=== PATIENT | female | born 1950 | race Two or more races ===

== ENCOUNTER 2020-04-01 08:17 | Day surgery (SDC) | payer MEDICAID ==
[~2020-04-01] VITALS: Ht 152.4 cm; Wt 67.0 kg
[2020-04-01] VITALS (10 sets, daily range): BP systolic 102–144; BP diastolic 57–71
[~2020-04-01 08:17] MED LIST: LR 1000ml 1,000 ML IVLG SCH
[2020-04-01] MEDS ORDERED: ASPIRIN81 MG ORAL (09:19)
[2020-04-01] MEDS ORDERED: TRIAMTERENE-HC1 EAC7 ORAL (09:19)
[2020-04-01] MEDS ORDERED: ENALAPRIL MALE2.5 MG ORAL (09:19)
[2020-04-01] MEDS ORDERED: NORVASC10 MG ORAL (09:19)
[2020-04-01] MEDS ORDERED: Lidocaine 1% MPF 10mg/ml 5ml ONE (10:30)
[2020-04-01] MEDS ORDERED: LR 1000ml ONE (10:30)
--- NOTE | 2020-04-01 10:34 | Pre-Procedure Note/Attestation ---
Pre-Procedure Note/Attestation Complete Prior to Procedure Planned Procedure: not applicable Procedure Narrative: esophagogastroduodenoscopy and colonoscopy Indications for Procedure Pre-Operative Diagnosis: screening colon GERD Attestation I attest that I discussed the nature of the procedure; its benefits; risks and complications; and alternatives (and the risks and benefits of such alternatives ), prior to the procedure, with the patient (or the patient's legal representative personal service). I attest that, if there was a reasonable possibility of needing a blood transfusion, the patient (or the patient's legal representative personal service) was given the [facility] standardized written summary, pursuant to the [place] Blood Safety Act ([place] Health and Safety Code # 1645, as amended). I attest that I re-evaluated the patient just prior to the surgery and that there has been no change in the patient's H&P, except as documented below: William Gant MD Apr 01, 2020 10:34
--- NOTE | 2020-04-01 10:36 | Short Stay Surgery H&P ---
History of Present Illness History of Present Illness Chief Complaint gerd, screening colon HPI Jayden Rae is a 70 year old female who was admitted on for Gerd, Constipation Due To Chemo Patient History Allergies: Coded Allergies: No Known Allergies (Unverified , 03/26/20) PAST MEDICAL HISTORY: (1) HTN (hypertension) (2) GERD (gastroesophageal reflux disease) Medication History Scheduled Amlodipine Besylate (Norvasc), 10 MG ORAL DAILY, (Reported) Aspirin* (Aspirin*), 81 MG ORAL DAILY, (Reported) Enalapril Maleate* (Enalapril Maleate*), Unknown Dose ORAL DAILY, (Reported) Triamterene/Hydrochlorothiazid (Triamterene-Hctz 37.5-25 Mg Cp), 1 CAP ORAL DAILY, (Reported) Review of Systems Cardiovascular: Reports: no symptoms Respiratory: Reports: no symptoms Skeletal: Reports: no symptoms Gastrointestinal: Reports: gastro esophageal reflux disease Genitourinary: Reports: no symptoms Neurologic: Reports: no symptoms Endocrine: Reports: no symptoms Physical Exam Vital Signs Last Vital Signs Date Time Temp Pulse Resp B/P (MAP) Pulse Ox O2 Delivery O2 Flow Rate FiO2 04/01/20 09:13 Room Air 04/01/20 08:45 96.2 75 16 118/66 100 Skin: normal HENT: normal Heart: normal Lungs: normal Abdomen: normal Extremities: normal Plan Plan of Care esophagogastroduodenoscopy and colonoscopy Attestation Are the patient's medical conditions optimized for surgery? Attestation Response: yes William Gant MD Apr 01, 2020 10:36
--- NOTE | 2020-04-01 11:01 | Endoscopy Procedure Note ---
Endoscopy Procedure Note General Indication for Procedure: screening colon, GERD Procedures Performed: EGD, colonoscopy Operative Findings/Diagnosis: gastritis, colon polyp Specimen: yes Pt Tolerated Procedure Well: Yes Estimated Blood Loss: none Anesthesia Anesthesiologist: tavo Anesthesia: MAC Inserted Devices Implant(s) used?: No Quality Quality of Bowel Preparation: Good Did scope reach the cecum?: Yes Was there any complications?: No GI Core Measures 50 yrs or older w/o bx or poly: No 10yrs. F/U recommended: Yes If not recommended, why?: Above average risk 18 years or older w/prev. colo: No William Gant MD Apr 01, 2020 11:01
--- NOTE | 2020-04-01 11:11 | Immediate Post-Op Evaluation ---
Immediate Post-Op Evalulation Immediate Post-Op Evalulation Procedure: edg/colonoscopy Date of Evaluation: Apr 01, 2020 Time of Evaluation: 11:10 IV Fluids: 300 Blood Pressure Systolic: 102 Blood Pressure Diastolic: 60 Pulse Rate: 69 Respiratory Rate: 14 O2 Sat by Pulse Oximetry: 100 Nausea: No Vomiting: No Complications none Patient Status: awake, reacts, patent Hydration Status: adequate Drug: none Marjan Delarosa CRNA Apr 01, 2020 11:11
--- NOTE | 2020-04-01 11:13 | Anethesia Preoperative Eval ---
Anesthesia Pre-op PMH/ROS General Date of Evaluation: Apr 01, 2020 Time of Evaluation: 10:23 Anesthesiologist: jennifer ASA Score: ASA 3 Mallampati Score Class I : Soft palate, uvula, fauces, pillars visible Class II: Soft palate, uvula, fauces visible Class III: Soft palate, base of uvula visible Class IV: Only hard plate visible Mallampati Classification: Class II Surgeon: rosa Diagnosis: screenin Surgical Procedure: egd/colonoscopy Anesthesia History: none Family History: no anesthesia problems Allergies: Coded Allergies: No Known Allergies (Unverified , 03/26/20) Medications: see eMAR Patient NPO?: Yes NPO Date: Apr 01, 2020 NPO Time: 00:01 Past Medical History Cardiovascular: Reports: HTN Pulmonary: Denies: asthma, COPD, [place], other Gastrointestinal/Genitourinary: Reports: GERD Neurologic/Psychiatric: Denies: dementia, CVA, depression/anxiety, TIA, other Endocrine: Denies: DM, hypothyroidism, steroids, other HEENT: Denies: cataract (L), cataract (R), glaucoma, CAHTO (L), CAHTO (R), other Hematology/Immune: Reports: anemia Musculoskeletal/Integumentary: Reports: other - colon ca; Denies: OA, RA, DJD, DDD, edema PSxH Narrative: colonoscopy Anesthesia Pre-op Phys. Exam Physician Exam Last Vital Signs Date Time Temp Pulse Resp B/P (MAP) Pulse Ox O2 Delivery O2 Flow Rate FiO2 04/01/20 09:13 Room Air 04/01/20 08:45 96.2 75 16 118/66 100 Constitutional: NAD Neurologic: CN 2-12 intact Cardiovascular: RRR Respiratory: CTA Gastrointestinal: S/NT/ND Airway Exam Mallampati Classification 2 Mallampati Score: Class II MO: full ROM: full Dentures: no upper, no lower Anesthesia Pre-op A/P Studies Pre-op Studies: EKG - sr Risk Assessment & Plan Plan: mac Status Change Before Surgery: No Pre-Antibiotics Drug: declined Marjan Delarosa CRNA Apr 01, 2020 11:13
--- NOTE | 2020-04-01 12:17 | 48 Hour Post Anesthesia Eval ---
Post Anesthesia Evaluation Procedure: edg/colonoscopy Date of Evaluation: Apr 01, 2020 Time of Evaluation: 12:17 Blood Pressure Systolic: 139 0: 57 Pulse Rate: 51 Respiratory Rate: 14 O2 Sat by Pulse Oximetry: 98 Airway: patent Nausea: No Vomiting: No Hydration Status: adequate Cardiopulmonary Status: stable Mental Status/LOC: patient returned to baseline Post-Anesthesia Complications: none Follow-up care needed: N/A Marjan Delarosa CRNA Apr 01, 2020 12:17
--- NOTE | 2020-04-01 14:30 | Procedure Note ---
DATE OF PROCEDURE: 04/01/2020 SURGEON: William Gant MD PROCEDURE: Upper endoscopy with biopsy and colonoscopy with biopsy. ANESTHESIA: Per STAMPING DIE MAKER, Marjan Tarrillsamuel. INSTRUMENT: Olympus adult flexible upper endoscope and colonoscope. INDICATION: History of colon cancer, chronic GERD. REASON FOR PROCEDURE: The procedure, risks, benefits, and possible consequences, including hemorrhage, aspiration, perforation and infection, and alternative treatments, were explained to the patient/legal guardian by Dr. William Gant and the patient/legal guardian understood and accepted these risks. PROCEDURE IN DETAIL: After informed consent was obtained and the patient was adequately sedated, Olympus upper endoscope was advanced from mouth into the second portion of the duodenum and retroflexion was performed in the stomach. The patient has diffuse gastritis. Random biopsy from antrum was obtained to rule out H. pylori infection. Otherwise normal upper endoscopic examination. At this time, the upper endoscope was retrieved and the patient was turned over for colonoscopy. First, rectal exam performed, which was positive for internal hemorrhoids. Then, the scope was advanced from the rectum into the cecum documented by appendix orifice, ileocecal valve, and right upper quadrant palpation. Quality of prep was very good. There was some nodular changes in the cecum suspicious for either flat polyp or just a benign finding. So biopsy from this area was obtained. The rest of the examination grossly within normal limits. Anastomosis at about 18 centimeter from anal verge without any recurrent malignancy. Retroflexion of rectum performed showed evidence of internal hemorrhoids. SUMMARY OF FINDINGS: 1. Gastritis, status post biopsy. 2. Internal hemorrhoids. 3. Anastomosis at 18. 4. Flat-looking polyp in the cecum, status post biopsy. RECOMMENDATIONS: Follow biopsy results and treat accordingly. William Gant M.D. DR: BRITANY JOB#: [id number] CC:
== END 2020-04-01 12:15 | disposition home or self-care (01) ==
LOC: GAS 08:17
DX: K21.9 Gastro-esophageal reflux disease without esophagitis (principal); K29.70 Gastritis, unspecified, without bleeding; K64.8 Other hemorrhoids; K63.89 Other specified diseases of intestine; K63.5 Polyp of colon; B96.81 Helicobacter pylori [H. pylori] as the cause of diseases classified elsewhere; I10 Essential (primary) hypertension; Z79.899 Other long term (current) drug therapy; D12.0 Benign neoplasm of cecum; Z85.038 Personal history of other malignant neoplasm of large intestine
CPT/HCPCS: 43239; 45380; 93005; 94003; J2704; J7120; Z7512; 94150